=== PATIENT | female | born 1970 | race Caucasian/White ===

== ENCOUNTER 2017-01-06 15:59 | Emergency (ER) | payer OTHER ==
[2017-01-06 16:32] VITALS: BP 99/70; PULSE 85; TEMP 98.2; BMI 21.9
[2017-01-06 17:39] LABS: URINE APPEARANCE SLCLOUDY; URINE BILIRUBIN NEGATIVE (NEGATIVE); URINE BLOOD NEGATIVE (NEGATIVE); URINE COLOR YELLOW; URINE GLUCOSE (UA) NEGATIVE (NEGATIVE); URINE KETONE NEGATIVE (NEGATIVE); URINE NITRITE NEGATIVE (NEGATIVE); URINE PROTEIN NEGATIVE (NEGATIVE); URINE UROBILINOGEN NEGATIVE mg/dL (0.2-1.0)
--- NOTE | 2017-01-06 17:48 | PDOC ---
History of Present Illness - General Chief Complaint: Pain, Acute Stated Complaint: PAIN Time Seen by Provider: 01/06/17 16:55 - History of Present Illness Initial Comments: 01/06/17 17:48 CHIEF COMPLAINT: HISTORY OF PRESENT ILLNESS: 46 yo F with hx of MS, asthma, ovarian cysts, and depression presents to [facility] with pelvic pain and back pain x 4 days. Patient reports feeling worsening pain when she urinates and that she "has to go a lot but nothing happens." Patient also complains of pain going down her legs b/l. Patient denies fever, chills, nausea, vomiting or diarrhea. LMP was last week. Patient reports that she is sexually active but monogamous with . No recent travel or sick contacts. PAST MEDICAL HISTORY: as per HPI FAMILY HISTORY: Denies SOCIAL HISTORY: Denies tobacco, alcohol, illicit drug use. SURGICAL HISTORY: Denies ALLERGIES: No known drug allergies REVIEW OF SYSTEMS General/Constitutional: Denies fever or chills. Denies weakness, weight change. HEENT: Denies change in vision. Denies ear pain or discharge. Denies sore throat. Cardiovascular: Denies chest pain or shortness of breath. Respiratory: Denies cough, wheezing, or hemoptysis. Gastrointestinal: Lower abdominal/pelvic pain b/l. Denies nausea, vomiting, diarrhea or constipation. Denies rectal bleeding. Genitourinary: Dysuria, urinary frequency.. Musculoskeletal: b/l lower back pain. Denies joint or muscle swelling or pain. Skin and breasts: Denies rash or easy bruising. PHYSICAL EXAM General Appearance: Well-appearing, appropriately dressed. No apparent distress. HEENT: EOMI, PERRLA, normal ENT inspection, normal voice, TMs normal, pharynx normal. No conjunctival pallor. No photophobia, scleral icterus. Respiratory/Chest: Lungs CTAB. Cardiovascular: RRR. S1, S2. Gastrointestinal/Abdominal: Normal bowel sounds. Abdomen soft, non-distended. No tenderness or rebound tenderness. No organomegaly, pulsatile mass, guarding , hernia, hepatomegaly, splenomegaly. Musculoskeletal/Extremities: CVA tenderness b/l. Normal inspection. FROM of all extremities, normal capillary refill. Pelvis Stable. No CVA tenderness. No tenderness to extremities, pedal edema, swelling, erythema or deformity. Pelvic: External genitalia normal without lesions. Vaginal vault with thick yellow/green discharge. Cervix is long and closed. No cervical motion tenderness. Uterus is nontender and normal in size. Adnexal tenderness b/l. Integumentary: Appropriate color, dry, warm. No cyanosis, erythema, jaundice or rash Neurologic: scraper operator II-XII intact. Fully oriented, alert. Appropriate mood/affect. Motor strength 5/5. No appreciable EOM palsy, facial droop or sensory deficit. 01/06/17 18:08 Past History - Past Medical History Allergies/Adverse Reactions: Allergies Allergy/AdvReac Type Severity Reaction Status Date / Time No Known Drug Allergies Allergy Verified 01/06/17 16:20 Home Medications: Ambulatory Orders Albuterol Sulfate [Proventil Hfa] 2 inh PO PRN PRN 11/22/12 Budesonide/Formeterol Fumarate [SYMBICORT 160/4.5mcg] 2 inh IH DAILY 11/22/12 Interferon Beta-1A/Albumin [Rebif 22 Mcg/0.5 ml Syringe] 22 mcg SQ UTDICT Lamotrigine [Lamictal] 25 mg PO HS 11/22/12 Trazodone HCl 300 mg PO HS 11/22/12 Bisacodyl [Correctol] 5 mg PO BID 04/20/14 Azithromycin [Zithromax 250mg Tablets -] 250 mg PO UTDICT #6 tab 05/31/15 Benzonatate [Tessalon Perle -] 200 mg PO BID PRN #10 cap 05/31/15 Prednisone [Deltasone -] 20 mg PO DAILY #5 tablet 05/31/15 Nitrofurantoin Monohyd/M-Cryst [Macrobid -] 100 mg PO BID #14 capsule 01/06/17 Anemia: No Asthma: Yes Cancer: No Cardiac Disorders: No CVA: No COPD: No CHF: No Dementia: No Diabetes: No GI Disorders: Yes (CHRONIC CONSTIPATION) Disorders: No HTN: No Hypercholesterolemia: No Liver Disease: No Seizures: No Thyroid Disease: No Other medical history: MS - Immunization History Immunization Up to Date: Yes - Psycho/Social/Smoking Cessation Hx Anxiety: Yes Suicidal Ideation: No Smoking Status: Yes (QUIT 1998) Smoking History: Never smoked Have you smoked in the past 12 months: No If you are a former smoker, when did you quit?: 2007 Information on smoking cessation initiated: No Hx Alcohol Use: No Drug/Substance Use Hx: No Substance Use Type: Alcohol Hx Substance Use Treatment: No *Physical Exam - Vital Signs Last Vital Signs Temp Pulse Resp BP Pulse Ox 98.2 F 85 20 99/70 100 01/06/17 16:21 01/06/17 16:21 01/06/17 16:21 01/06/17 16:21 01/06/17 16:21 Medical Decision Making - Medical Decision Making 01/06/17 18:17 46 yo F with hx of MS, asthma, and depression presents to [facility] with pelvic pain and back pain x 4 days. -UA, Ucx, urine preg UA with 65 WBC and 3+ leuks. WIll treat for UTI. Very low suspicion for ct/gc or PID but given b/l adnexal tenderness will send test to r/o. -CT/GC amplification -Macrobid rx sent to pharm Advised patient to take medication as prescribed and to call us in 2-[address]/gc results. Advised patient of signs and symptoms for return to ER; patient verbalized understanding and agrees to plan. *DC/Admit/Observation/Transfer Diagnosis at time of Disposition: UTI (urinary tract infection) Qualifiers: Urinary tract infection type: site unspecified Hematuria presence: without hematuria Qualified Code(s): N39.0 - Urinary tract infection, site not specified - Discharge Dispostion Disposition: HOME Condition at time of disposition: Stable Admit: No - Prescriptions Prescriptions: Nitrofurantoin Monohyd/M-Cryst [Macrobid -] 100 mg PO BID #14 capsule - Referrals Referrals: Trinh العلي [Primary Care Provider] - - Patient Instructions Printed Discharge Instructions: DI for Urinary Tract Infection (UTI) Additional Instructions: Please take medication as prescribed and complete the ENTIRE course of antibiotics, even after you are feeling better. Follow up with Dr. Henry as planned for your CLERICAL ASSISTANT exam next month. Please call us in 2-3 days for your final test results. If you experience fever, chills, nausea, vomiting, diarrhea , sudden severe pelvis pain, please return to the ER.
[2017-01-06 17:51] LABS: URINE LEUK ESTERASE 3+ (NEGATIVE)
[2017-01-06 17:52] LABS: URINE BACTERIA RARE /hpf (NONE SEEN); URINE MUCUS RARE; URINE RBC 2 /hpf (0-3); URINE WBC 65 /hpf (3-5)
== END 2017-01-06 18:42 | disposition home or self-care (01) ==
LOC: JER 15:59
DX: N39.0 Urinary tract infection, site not specified (principal); Z87.891 Personal history of nicotine dependence; K59.00 Constipation, unspecified; G35 Multiple sclerosis; F32.9 Major depressive disorder, single episode, unspecified
CPT/HCPCS: 36415; 81003; 81015; 84703; 87086; 87491; 87591; 99281-25

== ENCOUNTER 2018-01-20 22:22 | Emergency (ER) | payer OTHER ==
[2018-01-20 22:33] VITALS: BP 106/68; PULSE 89; TEMP 98.9; BMI 21.9
--- NOTE | 2018-01-20 23:26 | PDOC ---
Attending Attestation - Resident Resident Name: Hector Reardon - ED Attending Attestation I have performed the following: I have examined & evaluated the patient, The case was reviewed & discussed with the resident, I agree w/resident's findings & plan, Exceptions are as noted - Medical Decision Making 01/20/18 23:26 I, Dr. Maryan Montenegro, DO, attest that this document has been prepared under my direction and personally reviewed by me in its entirety. I further attest, that it accurately reflects all work, treatment, procedures and medical decision -making performed by me. 01/21/18 00:44 a/p: 47yo female with suprapubic pain, pelvic pain, vag bleeding -no cmt on pelvic exam, adnexal ttp -will send labs, ua, tvus -pain control -ivf hydration -will monitor and reassess 01/21/18 00:48 pt with UTI on labs will start abx <Maryan Montenegro - Last Filed: 01/21/18 00:44> - HPI HPI: 01/21/18 00:54 The patient is a 47 year old female with past medical history of asthma, MS, and ovarian cyst presents to the emergency department with abdominal pain. The patient reports 1 week of progressively worsening, intermittent pain to the abdominal region and B/l flank region that radiates down the legs. The patient reports additions symptoms of vaginal bleeding, initially presented as vaginal discharge. The patient states past 3 days shes been having bright red vaginal bleeding. LMP: 3 weeks ago. Allergies: NKA Surgical history: 2 in the past. TAPPING MACHINE OPERATOR: Dr. Fernández - Physicial Exam PE: 01/21/18 00:59 GENERAL: Awake, alert, and fully oriented, in no acute distress HEAD: No signs of trauma EYES: PERRLA, EOMI, sclera anicteric, conjunctiva clear ENT: Auricles normal inspection, hearing grossly normal, nares patent. Moist mucosa NECK: Normal ROM, supple, no lymphadenopathy, JVD, or masses LUNGS: Breath sounds equal, clear to auscultation bilaterally. No wheezes, and no crackles HEART: Regular rate and rhythm, normal S1 and S2, no murmurs, rubs or gallops ABDOMEN:(+) Suprapubic and pelvic tenderness without rebound or guarding. Rest of the abdomen: nontender, soft. No guarding, no rebound. No masses PELVIC EXAMINATION: Mild blood in the vault. L. adnexal tenderness. No CMT. Os closed. EXTREMITIES: Normal range of motion, no edema. No erythema or tenderness. DP/PT pulses 2+ and symmetric. Warm and well perfused. NEUROLOGICAL: Moves all extremities. Normal speech, normal gait SKIN: Warm, Dry, normal turgor, no rashes or lesions noted. - Medical Decision Making 01/21/18 00:54 Documentation prepared by Pearl Parks, acting as medical staff manager for Maryan Montenegro DO. <Pearl Parks - Last Filed: 01/21/18 01:00>
--- NOTE | 2018-01-20 23:47 | PDOC ---
History of Present Illness - General Chief Complaint: Pain Stated Complaint: ABD CRAMPING,LEG AND BACK PAIN Time Seen by Provider: 01/20/18 23:04 - History of Present Illness Initial Comments: 01/20/18 23:42 47 yo F with h/o MS, asthma, and ovarian cysts who p/w vaginal bleeding and abdominal pain. Patient reports 1 week of worsening, severe, cramping, intermittent, lower abdominal pain and cramping radiates down back down entire left leg. No identifiable alleviators, or head butler. Reports initial clear, yellow, vaginal discharge, which progressed into bright red bleeding x 3 days. LMP 3 weeks ago. Two panty liners per day. No pruritus, or pelvic pain. Pain not improved with Aleve. + lightheadedness, and nausea. Menstruation typically regular. Patient denies vomiting F/C, CP, SOB, urinary complaints, hematuria, pelvic pain , diarrhea, bowel symptoms, constipation, weakness, sensory changes. PMHx: as noted above Surgical: H/o x 2. Tubal ligation. ROS: as noted SHx: Denies Etoh, IVDA, tobacco. Sexually active with . Denies h/o STI' s. Allergies: NKDA Container Packer Operator: Emiliano Past History - Past Medical History Allergies/Adverse Reactions: Allergies Allergy/AdvReac Type Severity Reaction Status Date / Time No Known Drug Allergies Allergy Verified 01/20/18 22:25 Home Medications: Ambulatory Orders Albuterol Sulfate [Proventil Hfa] 2 inh PO PRN PRN 11/22/12 Budesonide/Formeterol Fumarate [SYMBICORT 160/4.5mcg] 2 inh IH DAILY 11/22/12 Interferon Beta-1A/Albumin [Rebif 22 Mcg/0.5 ml Syringe] 22 mcg SQ UTDICT Lamotrigine [Lamictal] 25 mg PO HS 11/22/12 Trazodone HCl 300 mg PO HS 11/22/12 Bisacodyl [Correctol] 5 mg PO BID 04/20/14 Azithromycin [Zithromax 250mg Tablets -] 250 mg PO UTDICT #6 tab 05/31/15 Benzonatate [Tessalon Perle -] 200 mg PO BID PRN #10 cap 05/31/15 predniSONE [Deltasone -] 20 mg PO DAILY #5 tablet 05/31/15 Nitrofurantoin Monohyd/M-Cryst [Macrobid -] 100 mg PO BID #14 capsule 01/06/17 Prednisone [Deltasone] 40 mg PO DAILY 5 Days #10 tablet MDD 2 tab 11/28/17 Cephalexin [Keflex] 500 mg PO BID 7 Days #14 capsule MDD 2 tab 01/21/18 Anemia: No Asthma: Yes Cancer: No Cardiac Disorders: No CVA: No COPD: No CHF: No Dementia: No Diabetes: No GI Disorders: Yes (CHRONIC CONSTIPATION) Disorders: No HTN: No Hypercholesterolemia: No Liver Disease: No Seizures: No Thyroid Disease: No Other medical history: MS - Immunization History Immunization Up to Date: Yes - Suicide/Smoking/Psychosocial Hx Smoking Status: Yes (QUIT 1998) Smoking History: Former smoker Have you smoked in the past 12 months: Yes Number of Cigarettes Smoked Daily: 3 If you are a former smoker, when did you quit?: 2011 Information on smoking cessation initiated: No 'Breaking Loose' booklet given: 11/28/17 Hx Alcohol Use: Yes Drug/Substance Use Hx: No Substance Use Type: Alcohol Hx Substance Use Treatment: No Review of Systems - Review of Systems Comments:: 01/20/18 23:48 GENERAL/CONSTITUTIONAL: No fever or chills. No weakness. HEAD, EYES, EARS, NOSE AND THROAT: No change in vision. No ear pain or discharge. No sore throat. CARDIOVASCULAR: No chest pain or shortness of breath RESPIRATORY: No cough, wheezing, or hemoptysis. GASTROINTESTINAL: + Abdominal pain and nause. No vomiting, diarrhea or constipation. GENITOURINARY: + Vaginal bleeding. No dysuria, frequency, or change in urination. MUSCULOSKELETAL: No joint or muscle swelling or pain. No neck or back pain. SKIN: No rash NEUROLOGIC: No headache, vertigo, loss of consciousness, or change in strength/ sensation. ENDOCRINE: No increased thirst. No abnormal weight change HEMATOLOGIC/LYMPHATIC: No anemia, easy bleeding, or history of blood clots. ALLERGIC/IMMUNOLOGIC: No hives or skin allergy. *Physical Exam - Vital Signs Last Vital Signs Temp Pulse Resp BP Pulse Ox 98.9 F 89 18 106/68 100 01/20/18 22:26 01/20/18 22:26 01/20/18 22:26 01/20/18 22:26 01/20/18 22:26 - Physical Exam Comments: 01/20/18 23:47 GENERAL: Awake, alert, and fully oriented, in no acute distress HEAD: No signs of trauma, normocephalic, atraumatic EYES: PERRLA, EOMI, sclera anicteric, conjunctiva clear ENT: Hearing grossly normal, nares patent, oropharynx clear without exudates. Moist mucosa NECK: Normal ROM, supple, no lymphadenopathy, JVD, or masses LUNGS: No distress, speaks full sentences, clear to auscultation bilaterally HEART: Regular rate and rhythm, normal S1 and S2, no murmurs, rubs or gallops, peripheral pulses normal and equal bilaterally. ABDOMEN:+ epigastric ttp, and lower abdominal ttp. Soft, NBS. No guarding, no rebound. No masses. + BL flank ttp. Neg CVA ttp. : Normal appearing external genitalia. + Blood posterior vaginal vault. Cervical OS closed. Absent CMT on BM. EXTREMITIES : Normal inspection, Normal range of motion, no edema. No clubbing or cyanosis. SKIN: Warm, Dry, normal turgor, no rashes or lesions noted ED Treatment Course - LABORATORY CBC & Chemistry Diagram: 01/21/18 00:14 01/21/18 00:14 Medical Decision Making - Medical Decision Making 01/20/18 23:50 47 yo F with h/o MS, asthma, and ovarian cysts who p/w vaginal bleeding x 3 days and lower abdominal pain x 1 week. VSS, AF. R/o ovarian torsion. Possible DUB will consider leiomyomata, ovarian cystic rupture. Will assess for and related causes of abdominal pain and vaginal bleeding ( ie ectopic, implantation bleeding). ED Course: CBC, CMP, PT/INR, BHCG 01/21/18 00:37 UA: 3+ BLood, 3+ Leuk, 256 WBC, 1320 RBC 01/21/18 00:40 Rocephin 1 GM, Toradol 30 Keflex sent to pharmacy. 01/21/18 01:39 CBC,CMP: Unremarkable 01/21/18 02:14 TVUS: Unremarkable Pt. stable for d/c with return precautions. Advised to f/u with PMD or supervisor briar shop. *DC/Admit/Observation/Transfer Diagnosis at time of Disposition: UTI (urinary tract infection) Qualifiers: Urinary tract infection type: site unspecified Hematuria presence: without hematuria Qualified Code(s): N39.0 - Urinary tract infection, site not specified - Discharge Dispostion Condition at time of disposition: Stable Decision to Admit order: No - Prescriptions Prescriptions: Cephalexin [Keflex] 500 mg PO BID 7 Days #14 capsule MDD 2 tab - Referrals Referrals: Trinh العلي [Primary Care Provider] - - Patient Instructions Printed Discharge Instructions: DI for Urinary Tract Infection (UTI), DI for Abnormal Uterine Bleeding Additional Instructions: Please return to the emergency department with any new or worsening symptoms or concerns. Please follow up with your primary care physician within 72 hours. Please follow up with Container Packer Operator physician within one week. Please take Keflex two times a day for 7 days. - Post Discharge Activity - Attestations Physician Attestion: 01/21/18 00:42 I attest to the information provided in this note.
[2018-01-20] MEDS ORDERED: SODIUM CHLORIDE 1,000 ML IV STA (23:52)
[2018-01-20] MEDS ORDERED: ACETAMINOPHEN 1000 MG/100 ML VIAL (NON FORMULARY) IVPB ONE (23:52)
[2018-01-20] MEDS ORDERED: ACETAMINOPHEN INJECTION 100 ML IVPB ONE (23:56)
[2018-01-21 00:25] LABS: BASO % 0.4 % (0-2.0); EOS % 5.2 % (0-4.5); HEMATOCRIT 35.2 % (32.4-45.2); HEMOGLOBIN 11.9 GM/dL (10.7-15.3); LYMPH % 17.1 % (8-40); MCH 29.3 pg (25.7-33.7); MCHC 33.7 g/dl (32.0-36.0); MEAN PLT VOLUME 7.8 fl (7.5-11.1); MONO % 5.3 % (3.8-10.2); PLATELET COUNT 276 K/MM3 (134-434); RBC 4.04 M/mm3 (3.60-5.2); RDW 14.2 % (11.6-15.6)
[2018-01-21 00:27] LABS: URINE APPEARANCE CLOUDY; URINE BILIRUBIN NEGATIVE (<2.0 mg/dL); URINE COLOR AMBER; URINE GLUCOSE (UA) NEGATIVE (NEGATIVE); URINE KETONE NEGATIVE (NEGATIVE); URINE NITRITE NEGATIVE (NEGATIVE); URINE UROBILINOGEN NEGATIVE mg/dL (0.2-1.0)
[2018-01-21 00:28] LABS: URINE LEUK ESTERASE 3+ (NEGATIVE); URINE PROTEIN 1+ (NEGATIVE)
[2018-01-21 00:30] LABS: EPI CELLS MODERATE /HPF (FEW); URINE BACTERIA FEW /hpf (NONE SEEN); URINE MUCUS MANY
[2018-01-21] MEDS ORDERED: KETOROLAC TROMETHAMINE 30 MG/1 ML VIAL IVPUSH ONE (00:37)
[2018-01-21] MEDS ORDERED: CEFTRIAXONE 1 GM in DEXTROSE 5%-WATER - 100 ML IVPB ONE (00:39)
[2018-01-21 00:42] LABS: INR 0.99 (0.83-1.09); PROTHROMBIN TIME (PATIENT) 11.2 SEC (9.7-13.0)
[2018-01-21 00:47] LABS: ALBUMIN 3.6 g/dl (3.4-5.0); ALK PHOS 71 U/L (45-117); ANION GAP 6 MMOL/L (8-16); BILIRUBIN,TOTAL 0.2 mg/dL (0.2-1.0); BLOOD UREA NITROGEN 19 mg/dL (7-18); CALCIUM 8.1 mg/dL (8.5-10.1); CHLORIDE 104 mmol/L (98-107); CO2 29 mmol/L (21-32); CREATININE 0.6 mg/dL (0.55-1.02); GLUCOSE,RANDOM 103 mg/dL (74-106); POTASSIUM 3.2 mmol/L (3.5-5.1); SGOT/AST 18 U/L (15-37); SGPT/ALT 23 U/L (12-78); SODIUM 139 mmol/L (136-145); TOT PROT 7.1 g/dl (6.4-8.2)
[2018-01-21] MEDS ORDERED: KETOROLAC TROMETHAMINE 30 MG/1 ML VIAL ONE (01:21)
[2018-01-21] MEDS ORDERED: CEFTRIAXONE 1 GM/50 ML BAG ONE (01:22)
== END 2018-01-21 02:25 | disposition home or self-care (01) ==
LOC: JER 22:22
PROC: 3E0337Z Introduction of Electrolytic and Water Balance Substance into Peripheral Vein, Percutaneous Approach (ICD-10-PCS; principal; 2018-01-20)
PROC: 3E03329 Introduction of Other Anti-infective into Peripheral Vein, Percutaneous Approach (ICD-10-PCS; 2018-01-20)
PROC: 3E033NZ Introduction of Analgesics, Hypnotics, Sedatives into Peripheral Vein, Percutaneous Approach (ICD-10-PCS; 2018-01-20)
PROC: 3E0333Z Introduction of Anti-inflammatory into Peripheral Vein, Percutaneous Approach (ICD-10-PCS; 2018-01-20)
DX: N39.0 Urinary tract infection, site not specified (principal); N83.299 Other ovarian cyst, unspecified side; G35 Multiple sclerosis; Z87.09 Personal history of other diseases of the respiratory system
CPT/HCPCS: 36415; 76830-TC; 80053; 81003; 81015; 84702; 85025; 85610; 86850; 86900; 86901; 96361; 96365; 96375; 99282-25; J0131; J7030

== ENCOUNTER 2018-01-27 16:48 | Emergency (ER) | payer OTHER ==
--- NOTE | 2018-01-27 17:00 | PDOC ---
Rapid Medical Evaluation Time Seen by Provider: 01/27/18 17:00 Medical Evaluation: Allergies Allergy/AdvReac Type Severity Reaction Status Date / Time No Known Drug Allergies Allergy Verified 01/20/18 22:25 01/27/18 17:00 I have performed a brief in-person evaluation of this patient. The patient presents with a chief complaint of:worsening vaginal bleeding x 9 days (normal menses last for 3 days). Seen in ED 1 week ago for same w/ normal labs and US. States her CONTACT CENTER CONSULTANT told her to come back to ED today as bleeding has worsened, now with dizziness/weakness. Has pmd appt tmrw Pertinent physical exam findings:stable I have ordered the following:labs The patient will proceed to the ED for further evaluation.
[2018-01-27 17:11] VITALS: BP 105/74; PULSE 87; TEMP 98.1; BMI 21.6
[2018-01-27 18:13] LABS: BASO % 0.4 % (0-2.0); EOS % 5.4 % (0-4.5); HEMATOCRIT 33.6 % (32.4-45.2); HEMOGLOBIN 11.4 GM/dL (10.7-15.3); LYMPH % 30.6 % (8-40); MCH 29.4 pg (25.7-33.7); MCHC 33.8 g/dl (32.0-36.0); MEAN CELL VOLUME 86.9 fl (80-96); MEAN PLT VOLUME 7.6 fl (7.5-11.1); MONO % 7.5 % (3.8-10.2); NEUT % 56.1 % (42.8-82.8); PLATELET COUNT 327 K/MM3 (134-434); RBC 3.87 M/mm3 (3.60-5.2); RDW 14.3 % (11.6-15.6); WHITE BLOOD COUNT 5.2 K/mm3 (4.0-10.0)
--- NOTE | 2018-01-27 18:14 | PDOC ---
History of Present Illness <Alfonso Elias - Last Filed: 01/27/18 19:45> - General History Source: Patient Exam Limitations: No Limitations - History of Present Illness Initial Comments: 01/27/18 22:35 "The patient is a 47-year-old female with a past medical history significant for MS and asthma presents to the emergency department with vaginal bleeding. The patient reports shes been having vaginal bleeding for over a week now, with an increase in bleeding the past 4 days. The patient reports bleeding through her panty liners. The patient reports following up at the ED on 2017 for vaginal bleeding and lower abdominal pain. The patient was given Toradol for the pain, with reported relief. The patient was also treated for UTI with Keflex. The patient denies the symptoms being similar to prior UTI diagnosis. The patient states since the ED visit, the pain and bleeding had worsened with difficulty sleeping through the night, accompanied with dizziness and generalized weakness. The patient was scheduled to see Dr. Fernández earlier today, but secondary to the heavy bleeding patient was sent to the ER. The patient reports she had an appointment with her PCP tomorrow. Denies chest pain , shortness of breath, dysuria, frequency or urgency in urination. LMP: Last month, unable to recall the date. Menstruation typically regular, last 3 days. Allergies: Social history: The patient is sexually active with her . Denies past or present use of tobacco, Etoh or recreational drugs. Surgical history: x2 and Tubal Ligation. PCP: Dr. العلي. 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 Fernández " <Pearl Parks - Last Filed: 01/27/18 22:37> - General Chief Complaint: Vaginal Bleeding Stated Complaint: VAGINAL BLEEDING Time Seen by Provider: 01/27/18 17:00 Past History - Past Medical History Anemia: No Asthma: Yes Cancer: No Cardiac Disorders: No CVA: No COPD: No CHF: No Dementia: No Diabetes: No GI Disorders: Yes (CHRONIC CONSTIPATION) Disorders: No HTN: No Hypercholesterolemia: No Liver Disease: No Seizures: No Thyroid Disease: No - Immunization History Immunization Up to Date: Yes - Suicide/Smoking/Psychosocial Hx Smoking Status: Yes (QUIT 1998) Smoking History: Never smoked Have you smoked in the past 12 months: Yes Number of Cigarettes Smoked Daily: 3 If you are a former smoker, when did you quit?: 2011 'Breaking Loose' booklet given: 11/28/17 Hx Alcohol Use: Yes Drug/Substance Use Hx: No Substance Use Type: Alcohol Hx Substance Use Treatment: No <Alfonso Elias - Last Filed: 01/27/18 19:45> <Pearl Parks - Last Filed: 01/27/18 22:37> - Past Medical History Allergies/Adverse Reactions: Allergies Allergy/AdvReac Type Severity Reaction Status Date / Time No Known Drug Allergies Allergy Verified 01/27/18 17:03 Home Medications: Ambulatory Orders Albuterol Sulfate [Proventil Hfa] 2 inh PO PRN PRN 11/22/12 Budesonide/Formeterol Fumarate [SYMBICORT 160/4.5mcg] 2 inh IH DAILY 11/22/12 Interferon Beta-1A/Albumin [Rebif 22 Mcg/0.5 ml Syringe] 22 mcg SQ UTDICT Lamotrigine [Lamictal] 25 mg PO HS 11/22/12 Trazodone HCl 300 mg PO HS 11/22/12 Bisacodyl [Correctol] 5 mg PO BID 04/20/14 Azithromycin [Zithromax 250mg Tablets -] 250 mg PO UTDICT #6 tab 05/31/15 Benzonatate [Tessalon Perle -] 200 mg PO BID PRN #10 cap 05/31/15 predniSONE [Deltasone -] 20 mg PO DAILY #5 tablet 05/31/15 Nitrofurantoin Monohyd/M-Cryst [Macrobid -] 100 mg PO BID #14 capsule 01/06/17 Prednisone [Deltasone] 40 mg PO DAILY 5 Days #10 tablet MDD 2 tab 11/28/17 Cephalexin [Keflex] 500 mg PO BID 7 Days #14 capsule MDD 2 tab 01/21/18 Review of Systems - Review of Systems Able to Perform ROS?: Yes Comments:: 01/27/18 22:35 "CONSTITUTIONAL: (+) weakness. No reported: Fever, Diaphoresis, chills, Malaise, Loss of Appetite HEENT: No reported: Rhinorrhea, Nasal Congestion, Throat Pain, Throat Swelling, Difficulty Swallowing, Mouth Swelling, Ear Pain, Eye Pain, Visual Changes CARDIOVASCULAR: No reported: Chest Pain, Syncope, Palpitations, Irregular Heart Rate, Lightheadedness, Peripheral Edema RESPIRATORY: No reported: Cough, Shortness of Breath, SOB with Exertion, Orthopnea, Wheezing , Stridor, Hemoptysis GASTROINTESTINAL: (+) Lower abdominal pain, crampy in character. No reported: Upper abdominal pain, Abdominal Distension, Nausea, Vomiting, Diarrhea, Constipation, Melena, Hematochezia GENITOURINARY: (+) Vaginal bleeding. No reported: Dysuria, Frequency, Urgency, Hesitancy, Flank Pain, Genital Pain MUSCULOSKELETAL: No reported: Myalgia, Arthralgia, Joint Swelling, Neck Pain SKIN: No reported: Rash, Itching, Pallor HEMEATOLOGIC/IMMUNOLOGIC: No reported: Easy Bleeding, Easy Bruising, Lymphadenopathy, Frequent infections ENDOCRINE: No reported: Unexplained Weight Gain, Unexplained Weight Loss, Heat Intolerance , Cold Intolerance NEUROLOGIC: (+) Dizziness. No reported: Headache, Focal Weakness, Paresthesias, Vertigo, Lightheadedness, Unsteady Gait, Seizure, Mental Status Changes, Incontinence PSYCHIATRIC: No reported: Anxiety, Depression " <Pearl Parks - Last Filed: 01/27/18 22:37> *Physical Exam - Vital Signs Last Vital Signs Temp Pulse Resp BP Pulse Ox 98.1 F 87 20 105/74 99 01/27/18 17:03 01/27/18 17:03 01/27/18 17:03 01/27/18 17:03 01/27/18 17:03 <Alfonso Elias - Last Filed: 01/27/18 19:45> - Vital Signs Last Vital Signs Temp Pulse Resp BP Pulse Ox 98.1 F 87 20 105/74 99 01/27/18 17:03 01/27/18 17:03 01/27/18 17:03 01/27/18 17:03 01/27/18 17:03 - Physical Exam Comments: 01/27/18 22:36 "GENERAL: The patient is awake, alert, and fully oriented, Nontoxic - in no acute distress. HEAD: Normocephalic, atraumatic. EYES: extraocular movements intact, sclera anicteric, conjunctiva clear. ENT: Normal voice, Moist mucous membranes. NECK: Normal range of motion, supple LUNGS: Breath sounds equal, clear to auscultation bilaterally. No wheezes, no rhonchi, no rales. HEART: Regular rate and rhythm, without murmur, rub or gallop. ABDOMEN: Soft, nontender, No guarding, no rebound.No CVA tenderness : (+) Scant dark red blood in the vault. No CMT or lesion. Closed Os. EXTREMITIES: Normal range of motion, no edema. NEUROLOGICAL: No facial asymmetry, Normal speech, PSYCH: Normal mood, normal affect. SKIN: Warm, Dry, normal turgor, " <Pearl Parks - Last Filed: 01/27/18 22:37> ED Treatment Course - LABORATORY CBC & Chemistry Diagram: 01/27/18 18:00 01/27/18 18:00 <Alfonso Elias - Last Filed: 01/27/18 19:45> - LABORATORY CBC & Chemistry Diagram: 01/27/18 18:00 01/27/18 18:00 - ADDITIONAL ORDERS Additional order review: Laboratory Results 01/27/18 01/27/18 01/27/18 18:00 18:00 18:00 PT with INR 11.60 INR 1.03 Sodium 140 Potassium 3.7 Chloride 105 Carbon Dioxide 26 Anion Gap 9 BUN 20 H Creatinine 0.5 L Creat Clearance w eGFR > 60 Random Glucose 113 H Calcium 8.3 L Total Bilirubin 0.2 AST 19 ALT 27 Alkaline Phosphatase 67 Total Protein 7.4 Albumin 3.9 Blood Type O POSITIVE Antibody Screen Negative 01/27/18 18:00 RBC 3.87 MCV 86.9 MCHC 33.8 RDW 14.3 MPV 7.6 Neutrophils % 56.1 D Lymphocytes % 30.6 D Monocytes % 7.5 Eosinophils % 5.4 H Basophils % 0.4 <Pearl Parks - Last Filed: 01/27/18 22:37> Medical Decision Making - Medical Decision Making 01/27/18 18:13 47y F hx of MS, presents with vaginal bleeding for the past 2 weeks or so - pt notes some intermittent superpubic cramping and increasing vaginal bleedin gfor the past 4 days associated with lightheadedness and generalized weakness. no associated fever/chills. on exam pt wel lappearing in no distress. exam unremakble beside mild amt of dark bloo din vaginal vault blood work noted stable hgb. recommended pelvic US but pt declines stating she just had one and that she has an appointment dr. Carballo on tuesday. vitals wnl dx: cesar pt has apointment with dr العلي tomorrow and dr. shah on tuesday return precautions were discussed I discussed the physical exam findings, ancillary test results and final diagnoses with the patient. I answered all of the patient's questions. The patient was satisfied with the care received and felt comfortable with the discharge plan and treatment plan. The patient will call their primary care physician within 24 hours to arrange follow-up and will return to the Emergency Department with any new, persistent or worsening symptoms. <Alfonso Elias - Last Filed: 01/27/18 19:45> *DC/Admit/Observation/Transfer - Discharge Dispostion Decision to Admit order: No <Alfonso Elias - Last Filed: 01/27/18 19:45> - Attestations Scribe Attestion: 01/27/18 22:37 Documentation prepared by Pearl Parks, acting as medical csr for Alfonso Elias MD. <Pearl Parks - Last Filed: 01/27/18 22:37> Diagnosis at time of Disposition: Menorrhagia Qualifiers: Menorrahagia type: premenopausal Qualified Code(s): N92.4 - Excessive bleeding in the premenopausal period - Discharge Dispostion Disposition: HOME Condition at time of disposition: Improved - Referrals Referrals: Trinh العلي [Primary Care Provider] - Rene An MD [Staff Physician] - - Patient Instructions Printed Discharge Instructions: DI for Menorrhagia Additional Instructions: Return to the emergency department immediately with ANY new, persistent or worsening symptoms including worsening bleeding, lightheadedness, shortness of breath or any other concerns You MUST call and follow up with Dr. Moore on tuesday for further evaluation of your symptoms. Results were discussed with you. Please make sure your doctor reviews the results of your emergency evaluation. Print Language: YAKUT - Post Discharge Activity
[2018-01-27] MEDS ORDERED: METOCLOPRAMIDE HCL INJECTION 10 MG/2 ML VIAL IVPUSH ONE (18:15)
[2018-01-27] MEDS ORDERED: ACETAMINOPHEN 325 MG TABLET (FP) PO ONE (18:15)
[2018-01-27 18:33] LABS: INR 1.03 (0.83-1.09); PROTHROMBIN TIME (PATIENT) 11.6 SEC (9.7-13.0)
[2018-01-27 19:10] LABS: ALBUMIN 3.9 g/dl (3.4-5.0); ANION GAP 9 MMOL/L (8-16); BLOOD UREA NITROGEN 20 mg/dL (7-18); CALCIUM 8.3 mg/dL (8.5-10.1); CHLORIDE 105 mmol/L (98-107); CO2 26 mmol/L (21-32); CREATININE 0.5 mg/dL (0.55-1.3); GLUCOSE,RANDOM 113 mg/dL (74-106); POTASSIUM 3.7 mmol/L (3.5-5.1); SGOT/AST 19 U/L (15-37); SGPT/ALT 27 U/L (13-61); SODIUM 140 mmol/L (136-145)
[2018-01-27 19:12] LABS: ALK PHOS 67 U/L (45-117); BILIRUBIN,TOTAL 0.2 mg/dL (0.2-1.0); TOT PROT 7.4 g/dl (6.4-8.2)
== END 2018-01-27 19:52 | disposition home or self-care (01) ==
LOC: JER 16:48
DX: N92.4 Excessive bleeding in the premenopausal period (principal)
CPT/HCPCS: 36415; 80053; 85025; 85610; 86850; 86900; 86901; 99282-25

== ENCOUNTER 2020-01-27 17:00 | Inpatient (IN) | payer OTHER ==
[2020-01-27] MEDS ORDERED: methylPREDNISolone NA SUCC 1000 MG/8 ML VIAL IVPB ONE (18:18)
--- NOTE | 2020-01-27 18:29 | PDOC ---
History of Present Illness - General Chief Complaint: Lightheaded Stated Complaint: SENT BY Time Seen by Provider: 01/27/20 17:41 History Source: Patient Exam Limitations: No Limitations - History of Present Illness Initial Comments: 01/27/20 18:23 49F PMH MS, asthma sent in by Neurologist Dr. Andujar for 2 days of worsening b/l proximal LE and UE weakness with episodes of vertigo and word finding difficulty. Symptoms peaked approximately two hours prior to arrival but patient no long has vertigo or word finding difficulties. Current has b/l leg weakness. Denies sensory changes, numbness, tingling. Denies f/c, recent illness, neck pain, cp/sob, n/v/d, abd pain, dysuria. Did endorse episodic visual blurring for the last few days. NKDA. PCP Trinh العلي, . Past History - Medical History Allergies/Adverse Reactions: Allergies Allergy/AdvReac Type Severity Reaction Status Date / Time No Known Drug Allergies Allergy Verified 01/27/20 17:19 Home Medications: Ambulatory Orders Albuterol Sulfate [Proventil HFA Inhaler -] 2 inh PO PRN PRN 11/22/12 Budesonide/Formeterol Fumarate [SYMBICORT 160/4.5mcg -] 2 inh IH DAILY 11/22/12 Interferon Beta-1A/Albumin [Rebif 22 Mcg/0.5 ml Syringe] 22 mcg SQ UTDICT 11/22/12 Lamotrigine [Lamictal] 25 mg PO HS 11/22/12 Trazodone HCl 300 mg PO HS 11/22/12 Bisacodyl [Correctol] 30 mg PO DAILY 04/20/14 Linaclotide [Linzess] 290 mcg PO DAILY 01/29/20 Pantoprazole Sodium [Protonix] 40 mg PO DAILY #30 tablet. 01/29/20 Simvastatin 40 mg PO DAILY 01/29/20 predniSONE [Deltasone -] 20 mg PO DAILY #30 tablet 01/29/20 Anemia: No Asthma: Yes Cancer: No Cardiac Disorders: No CVA: No COPD: No CHF: No Dementia: No Diabetes: No GI Disorders: Yes (CHRONIC CONSTIPATION) Disorders: No HTN: No Hypercholesterolemia: No Liver Disease: No Seizures: No Thyroid Disease: No Other medical history: MS - Reproductive History Is Patient Now?: No Therapeutic (s) & number: No - Immunization History Immunization Up to Date: Yes - Psycho-Social/Smoking History Smoking Status: Yes (QUIT 1998) Smoking History: Never smoked Have you smoked in the past 12 months: Yes Number of Cigarettes Smoked Daily: 3 If you are a former smoker, when did you quit?: 2011 'Breaking Loose' booklet given: 11/28/17 - Substance Abuse Hx (Audit-C & DAST Scrn) How often the patient has a drink containing alcohol: Never Score: In Men: 4 or > Positive; In Women: 3 or > Positive: 0 Screen Result (Pos requires Nsg. Audit-10AR): Negative Review of Systems - Review of Systems Comments:: 02/02/20 05:19 CONSTITUTIONAL: Denies F / C HEENT: + episodic vertigo, episodic vision blurring, and episodic word finding difficulties. Denies headache, sore throat, rhinorrhea RESP: Denies SOB, cough CARD: Denies chest pain, palpitations GI: Denies N / V / D, abdominal pain : Denies dysuria NEURO: + UE and LE weakness b/l Denies numbness, tingling MSK: Denies neck, back pain SKIN: Denies rashes *Physical Exam - Vital Signs Last Vital Signs Temp Pulse Resp BP Pulse Ox 97.4 F L 103 H 18 131/88 99 01/27/20 17:16 01/27/20 17:16 01/27/20 17:16 01/27/20 17:16 01/27/20 17:16 - Physical Exam 02/02/20 05:19 GEN: NAD, comfortable. AAOx3. HEENT: NC/AT, EOMI, PERRL, CN II-XII grossly intact. No facial asymmetry. Normal voice. Supple neck w/ FROM. CV: S1/S2, RRR, no m/r/g LUNG: CTAB, no wheezes, crackles, rales, rhonchi. GI: Soft, ndnt, +BS, no guarding, no rebound. MSK: No obvious deformities of all extremities. SKIN: Warm, dry, no rashes appreciated. PSYCH: Normal mood and affect. NEURO: 5/5 UE strength b/l. 4/5 proximal LE strenght and 4+/5 distal LE s trength. symmetric sensation. no pronation drift. Able to weight bear and take a few steps but overall unsteady ED Treatment Course - LABORATORY CBC & Chemistry Diagram: 01/29/20 08:00 01/29/20 08:00 - RADIOLOGY Radiology Studies Ordered: Category Date Time Status CHEST X-RAY PORTABLE* [RAD] Stat Radiology 01/27/20 18:18 Ordered Medical Decision Making - Medical Decision Making 02/02/20 05:19 49F w/ MS experiencing b/l proximal LE and UE weakness with associated episodic visual blurring, vertigo, and word finding difficulties. CUrrently experiencing only weakness. On testing UE strenght appropriate but proximal > distal weakness of the b/l LEs. Dw Dr. Andujar who recommends basic labs, solu-medrol, and admission. 01/27/20 19:08 signed out to PM team for further management and admission Discharge - Discharge Information Problems reviewed: Yes Clinical Impression/Diagnosis: Multiple sclerosis exacerbation Condition: Stable Disposition: HOME - Follow up/Referral - Patient Discharge Instructions - Post Discharge Activity
[2020-01-27] MEDS ORDERED: methylPREDNISolone NA SUCC 125 MG/2 ML VIAL ONE (18:36)
--- NOTE | 2020-01-27 18:56 | PDOC ---
Documentation entered by Rachelle Guerrero SCRIBE, acting as scribe for Maria Fernanda Tirado MD. Maria Fernanda Tirado MD: This documentation has been prepared by the [employer], SCRIBE, under my direction and personally reviewed by me in its entirety. I confirm that the documentation accurately reflects all work, treatment, procedures, and medical decision making performed by me. Attending Attestation - Resident Resident Name: CampbellVasu - ED Attending Attestation I have performed the following: I have examined & evaluated the patient, The case was reviewed & discussed with the resident, I agree w/resident's findings & plan, Exceptions are as noted - HPI HPI: 01/27/20 18:37 Patient is a 49 year old female with a significant past medical history of MS, asthma who presents to the ED sent by neurologist Dr. Andujar for two days of progressively worsening bilateral upper and lower extremity weakness with episodes of vertigo and word finding difficulty. Patient endorses symptoms reached their worst approximately two hours prior to her arrival to the ED. Patient still reports bilateral leg weakness but her vertigo and word finding difficulty have since resolved. She reports associated visual changes for the last few days. Denies headache, fever, chills, shortness of breath, chest pain, abdominal pain, nausea, vomiting, diarrhea, or urinary changes. Allergies: NKDA PCP: Dr. العلي - Physicial Exam PE: 01/27/20 18:42 Agree with resident exam. Patient is alert and oriented and in no acute distress. Neuro: CN 2-12 grossly intact. speech fluent and clear. 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 + drift on straight leg extention bilaterally. - Medical Decision Making 01/27/20 18:53 Pt presents to the ED complaining of bilateral arm and leg weakness and intermittent speech difficulty, likely secondary to MS flare. Case discussed with Dr. Andujar, who wants the patient started on solumedrol and admitted to medicine. Will check labs and admit to medicine. Discharge - Discharge Information Problems reviewed: Yes Clinical Impression/Diagnosis: Multiple sclerosis exacerbation Condition: Stable Disposition: HOME - Follow up/Referral - Patient Discharge Instructions - Post Discharge Activity
[2020-01-27 19:00] LABS: BASO % 1.1 % (0-2.0); EOS % 3.4 % (0-4.5); HEMATOCRIT 36.3 % (32.4-45.2); HEMOGLOBIN 12.1 GM/dL (10.7-15.3); LYMPH % 32.2 % (8-40); MCH 30.3 pg (25.7-33.7); MCHC 33.3 g/dl (32.0-36.0); MEAN CELL VOLUME 91.1 fl (80-96); MEAN PLT VOLUME 8.1 fl (7.5-11.1); NEUT % 55.3 % (42.8-82.8); PLATELET COUNT 211 K/MM3 (134-434); RBC 3.99 M/mm3 (3.60-5.2); RDW 13.5 % (11.6-15.6)
--- NOTE | 2020-01-27 19:37 | PDOC ---
*Physical Exam - Vital Signs Last Vital Signs Temp Pulse Resp BP Pulse Ox 97.4 F L 103 H 18 131/88 99 01/27/20 17:16 01/27/20 17:16 01/27/20 17:16 01/27/20 17:16 01/27/20 18:55 ED Treatment Course - LABORATORY CBC & Chemistry Diagram: 01/27/20 18:40 01/27/20 18:40 - ADDITIONAL ORDERS Additional order review: 01/27/20 18:40 RBC 3.99 MCV 91.1 MCHC 33.3 RDW 13.5 MPV 8.1 Neutrophils % 55.3 Lymphocytes % 32.2 Monocytes % 8.0 Eosinophils % 3.4 Basophils % 1.1 - Medications Given in the ED: ED Medications Discontinued Medications Generic Name Dose Route Start Last Admin Trade Name Santanaq PRN Reason Stop Dose Admin Methylprednisolone Sodium Succinate 250 mg 01/27/20 18:18 01/27/20 18:52 Solu-Medrol - IVPB 01/27/20 18:19 250 mg ONCE ONE Administration Medical Decision Making - Medical Decision Making 01/27/20 19:33 Patient received as signout This is a 49y/o f with PMH of MS followed by Dr. Pérez who sent her in due to 2 days of bilateral proximal LE and UE weakness. She was also having vertigo and word finding difficulty which peaked two hours prior to coming to the hospital She is no longer with the vertigo or word finding. Dr. Pérez wanted her admitted for MRI Given 250mg of Solumedrol Pending basic labs - Patient admitted to [facility] Discharge - Discharge Information Problems reviewed: Yes Clinical Impression/Diagnosis: Multiple sclerosis exacerbation Condition: Stable - Admission Yes - Follow up/Referral - Patient Discharge Instructions - Post Discharge Activity
[2020-01-27 20:05] LABS: ALBUMIN 3.4 g/dl (3.4-5.0); BLOOD UREA NITROGEN 17.1 mg/dL (7-18); CALCIUM 8.3 mg/dL (8.5-10.1); POTASSIUM 3.6 mmol/L (3.5-5.1); TOT PROT 6.9 g/dl (6.4-8.2)
[2020-01-27 20:27] LABS: BILIRUBIN,TOTAL 0.2 mg/dL (0.2-1)
--- NOTE | 2020-01-27 20:31 | PN ---
Teaching Attending Note Name of Resident: Luz Caballero ATTENDING PHYSICIAN STATEMENT I saw and evaluated the patient. I reviewed the resident's note and discussed the case with the resident. I agree with the resident's findings and plan as documented. SUBJECTIVE: Patient is a 49 year old woman with a PMH of Gastritis, Constipation, Depression, Multiple sclerosis and Asthma who presents to the ER sent by Neurologist Dr. Andujar for two days of progressively worsening bilateral upper and lower extremity weakness with episodes of vertigo and word finding difficulty. Patient reports symptoms reached their worst approximately two hours prior to her arrival to the ER. Patient still reports bilateral leg weakness but her vertigo and word finding difficulty have since resolved. She reports associated visual changes for the last few days. Denies headache, fever, chills, shortness of breath, chest pain, abdominal pain, nausea, vomiting, diarrhea or urinary changes. Denies alcohol, tobacco or illicit drug use. No sick contacts or recent travels. Family history of HTN and DM in mother; father and brother from [place]. OBJECTIVE: Alert Vital Signs Period Temp Pulse Resp BP Sys/Winston Pulse Ox Last 24 Hr 97.4 F 84-103 16-18 131-131/88-91 98-99 HEENT: No Jaundice, eye redness or discharge, PERRLA, EOMI. Normocephalic, atraumatic. External ears are normal and hearing is grossly intact. No nasal discharge. Neck: Supple, nontender. No palpable adenopathy or thyromegaly. No JVD Chest: Good effort. Clear to auscultation and percussion. Heart: Regular. No S3, rub or murmur Abdomen: Not distended, soft, nontender and no HSM. No rebound or guarding. Normal bowel sounds. Ext: Peripheral pulses intact. No leg edema. Skin: Warm and dry. No petechiae, rash or ecchymosis. Neuro: Alert. Oriented x3. Difficulty finding words. CN 2-12 grossly intact. Sensation grossly intact in all four extremities; weakness in lower extremities. Psych: Appropriate mood and affect. Good insight. Home Medications Medication Instructions Recorded Albuterol Sulfate [Proventil Hfa] 2 inh PO PRN PRN 11/22/12 Budesonide/Formeterol Fumarate 2 inh IH DAILY 11/22/12 [SYMBICORT 160/4.5mcg] Interferon Beta-1A/Albumin [Rebif 22 mcg SQ UTDICT 11/22/12 22 Mcg/0.5 ml Syringe] Lamotrigine [Lamictal] 25 mg PO HS 11/22/12 Trazodone HCl 300 mg PO HS 11/22/12 Bisacodyl [Correctol] 5 mg PO BID 04/20/14 Azithromycin [Zithromax 250mg 250 mg PO UTDICT #6 tab 05/31/15 Tablets -] Benzonatate [Tessalon Perle -] 200 mg PO BID PRN #10 cap 05/31/15 Abnormal Lab Results 01/27/20 18:40 Anion Gap 4 L Calcium 8.3 L AST 9 L Current Medications Generic Name Dose Route Start Last Admin Trade Name Freq PRN Reason Stop Dose Admin Albuterol Sulfate 2 puff 01/27/20 23:26 Ventolin Hfa Inhaler - IH Q4H PRN SHORT OF BREATH/WHEEZING Bisacodyl 5 mg 01/28/20 10:00 Dulcolax - PO DAILY STEVE Bupropion HCl 150 mg 01/28/20 10:00 Wellbutrin Xl - PO DAILY STEVE Enoxaparin Sodium 40 mg 01/28/20 10:00 Lovenox - SQ DAILY STEVE Lamotrigine 25 mg 01/27/20 23:19 Lamictal - PO HS STEVE Methylprednisolone Sodium Succinate 250 mg 01/28/20 10:00 Solu-Medrol - IVPB BID STEVE Montelukast Sodium 5 mg 01/28/20 22:00 Singulair - PO HS STEVE Polyethylene Glycol 17 gm 01/28/20 10:00 Miralax (For Daily Use) - PO DAILY STEVE Trazodone HCl 300 mg 01/28/20 22:00 Desyrel - PO HS STEVE ASSESSMENT AND PLAN: 1. MS Flare up - No acute abnormality on CXR. Urinalysis pending. ER staff prescribed Solumedrol 250 mg IV and Trazodone 250 mg PO for the patient. Will get MRI brain as recommended by her Neurologist and continue Solumedrol 250 mg IV q 12 hours and give Protonix 40 mg PO qd. EKG shows NSR at 86/minute and QTc [address]-T wave changes. Treat constipation with Miralax 17 gm bid and consult GI for possible outpatient colonoscopy to investigate chronic constipation. Viral testing for COVID-19 ordered and patient placed on airborne, droplet and contact isolation. Will continue comprehensive care for all of patients comorbid conditions including Duoneb PRN for Asthma. 2. DVT prophylaxis - Lovenox 40 mg SQ q 24 hours. 3. Advance directives - Full code
[2020-01-27] MEDS ORDERED: traZODone HCL 100 MG TABLET (FP) PO ONE (22:00)
[2020-01-27] MEDS ORDERED: ALBUTEROL SO4 HFA INHALER IH PRN (23:26)
--- NOTE | 2020-01-27 23:31 | HP ---
CHIEF COMPLAINT: I am having weakness PCP: Dr. Trinh العلي neurologist: Dr. Andujar HISTORY OF PRESENT ILLNESS: 49yo F with PMHx of asthma and Multiple Sclerosis with associated gastritis, chronic constipation, depression, and insomnia who presented with worsening weakness in all extremities and expressive aphasia. at bedside, helped with HPI as patient had some difficulties expressing herself. Symptoms of weakness and forgetfulness started about 2-4 days ago. At first, patient experienced some dizziness. Her helped her into bed but when he checked on her later she did not feel any better. Her last MS exacerbation was about 3-4 years ago, which was similar to this exacerbation but less severe and without the aphasia. Last time she got the steroids then felt better, but this time her neurologist recommended she come to the hospital. Patient explained that she has some baseline leg weakness with the L leg weaker than the R, but not all her weakness is worse than baseline. Also endorsed forgetfulness, dizziness, occasional headaches at night, and chronic constipation. Denied SOB, CP, NVD, dysuria, polyuria. ER course was notable for: (1) marked weakness in bilateral lower extremities L>R (2) expressive aphasia Recent Travel: was on the [place] [employer] for 6 days in December 2019 PAST MEDICAL HISTORY: as per HPI PAST SURGICAL HISTORY: 3 C-sections R shoulder ?lipoma removal Family History: mother: HTN, DM, alive father: of [place] brother: of [place], had asthma sister: healthy 3 healthy children OBGyn History: regular MPs due to OCPs - taking due to fibroma LMP last week Social History: Smoking: used to smoked 6-8 cigs/day for ~19 years, stopped about 1 year ago Alcohol: denied Drugs: denied Work: used to work at [employer], went on disability 14 years ago when diagnosed with MS Home: lives with Allergies No Known Drug Allergies Allergy (Verified 01/27/20 17:19) HOME MEDICATIONS: patient and well aware of which meds, but unsure of doses - AM meds: bupropion, bisacodyl, linaclotide - PM meds: trazodone 300, simvastatin, lamotrigene, montelukast Vienva control pills REVIEW OF SYSTEMS as per HPI PHYSICAL EXAMINATION Vital Signs - 24 hr 01/27/20 01/27/20 01/27/20 17:16 18:55 22:07 Temperature 97.4 F L Pulse Rate 103 H Pulse Rate [ 84 Left Radial] Respiratory 18 16 Rate Blood Pressure 131/88 Blood Pressure 131/91 [Left Arm] O2 Sat by Pulse 99 99 98 Oximetry (%) GENERAL: F, appears younger than stated age, thin to average body habitus, AAOx4 showing no signs of acute distress HEAD: Normal with no signs of trauma, good dentition EYES: PERRL, extraocular movements intact bilaterally, sclera white EARS, NOSE, THROAT: Moist mucous membranes. NECK: No lymphadenopathy noted LUNGS: CTAB HEART: RRR, normal S1 and S2 without murmur ABDOMEN: Soft, nontender, not distended, active bowel sounds, post- stretchmarks EXTREMITIES: 2+ radial and dorsalis pedis pulses, warm to touch bilaterally, nontender to palpation, no peripheral edema appreciated, no active lesions or ulcers noted on feet bilaterally including interdigital web spaces, sensation intact bilaterally in all extremities, upper extremities full strength, lower extremities weakness L>R NEUROLOGICAL: Cranial nerves II-XII grossly intact. Normal speech with symmetricalfacial movements. Sensation intact bilaterally. weak and shuffled gait. PSYCHIATRIC: Cooperative, motivated and interactive, responds appropriately in setting of expressive aphasia. Good eye contact. "Let me try" mood and affect congruent with stated mood SKIN: no rashes or lesions noted Laboratory Results - last 24 hr 01/27/20 01/27/20 18:40 18:40 WBC 4.0 RBC 3.99 Hgb 12.1 Hct 36.3 MCV 91.1 MCH 30.3 MCHC 33.3 RDW 13.5 Plt Count 211 D MPV 8.1 Absolute Neuts (auto) 2.2 Neutrophils % 55.3 Lymphocytes % 32.2 Monocytes % 8.0 Eosinophils % 3.4 Basophils % 1.1 Nucleated RBC % 0 Sodium 139 Potassium 3.6 Chloride 104 Carbon Dioxide 31 Anion Gap 4 L BUN 17.1 Creatinine 1.0 Est GFR (CKD-EPI)AfAm 77.69 Est GFR (CKD-EPI)NonAf 67.04 Random Glucose 101 Calcium 8.3 L Total Bilirubin 0.2 AST 9 L ALT 21 Alkaline Phosphatase 60 Total Protein 6.9 Albumin 3.4 ASSESSMENT/PLAN: 49yo F with PMHx of asthma and Multiple Sclerosis with associated gastritis, chronic constipation, depression, and insomnia who presented with worsening weakness in all extremities and expressive aphasia. Home meds were restarted at low doses - needs med rec. [facility] [address], [place] [phone] #Weakness and expressive aphasia likely 2/2 to Multiple Sclerosis exacerbation - solumedrol 250 BID - neurology consulted - MRI (with and without) with gadolinium ordered - continue home lamotrigene #Asthma - continue home montelukast - ordered PRN albuterol IH #Constipation - continue home bisacodyl - patient takes linaclotide at home - not available here - miralax ordered #Depression - continue home bupropion #Insomnia - continue home trazodone 300 #FEN - no standing fluids - replete lytes PRN - regular diet #PPX - DVT: lovenox #Dispo: medSurg Family Medical History Family History: As Documented Visit type - Emergency Visit Emergency Visit: Yes ED Registration Date: 01/27/20 Care time: The patient presented to the Emergency Department on the above date and was hospitalized for further evaluation of their emergent condition. - New Patient This patient is new to me today: Yes Date on this admission: 01/28/20 - Critical Care Critical Care patient: No ATTENDING PHYSICIAN STATEMENT I saw and evaluated the patient. I reviewed the resident's note and discussed the case with the resident. I agree with the resident's findings and plan as documented. SUBJECTIVE: OBJECTIVE: ASSESSMENT AND PLAN:
[2020-01-28] MEDS ORDERED: lamoTRIgine 25 MG TABLET ONE (00:43)
[2020-01-28] MEDS: lamoTRIgine 25 MG TABLET PO SCH ×2 (00:44→22:47)
[2020-01-28] MEDS ORDERED: ACETAMINOPHEN 1000 MG/100 ML VIAL (NON FORMULARY) IVPB ONE ×2 (01:15→22:16)
[2020-01-28 07:11] LABS: BASO % 0.1 % (0-2.0); HEMATOCRIT 37.4 % (32.4-45.2); HEMOGLOBIN 12.3 GM/dL (10.7-15.3); LYMPH % 20.2 % (8-40); MCH 29.6 pg (25.7-33.7); MCHC 32.9 g/dl (32.0-36.0); MEAN CELL VOLUME 90.2 fl (80-96); MEAN PLT VOLUME 8.8 fl (7.5-11.1); MONO % 1.5 % (3.8-10.2); NEUT % 78.2 % (42.8-82.8); PLATELET COUNT 210 K/MM3 (134-434); RBC 4.14 M/mm3 (3.60-5.2); RDW 13.5 % (11.6-15.6)
[2020-01-28 07:41] LABS: ALBUMIN 3.3 g/dl (3.4-5.0); BILIRUBIN,TOTAL 0.5 mg/dL (0.2-1); BLOOD UREA NITROGEN 14.9 mg/dL (7-18); CALCIUM 8.4 mg/dL (8.5-10.1); CREATININE 0.6 mg/dL (0.55-1.3); MAGNESIUM 2.1 mg/dL (1.8-2.4); PHOSPHOROUS 4.5 mg/dL (2.5-4.9); POTASSIUM 4.5 mmol/L (3.5-5.1)
[2020-01-28 08:09] LABS: WHITE BLOOD COUNT 1.8 K/mm3 (4.0-10.0)
[2020-01-28] MEDS ORDERED: methylPREDNISolone NA SUCC 125 MG/2 ML VIAL IVPB SCH (10:00)
--- NOTE | 2020-01-28 10:40 | EKG ---
Test Reason : Blood Pressure : / mmHG Vent. Rate : 086 BPM Atrial Rate : 086 BPM P-R Int : 168 ms QRS Dur : 088 ms QT Int : 394 ms P-R-T Axes : 067 044 052 degrees QTc Int : 471 ms NORMAL SINUS RHYTHM POSSIBLE LEFT ATRIAL ENLARGEMENT BORDERLINE ECG WHEN COMPARED WITH ECG OF 28-NOV-2017 19:47, NO SIGNIFICANT CHANGE WAS FOUND Confirmed by BRIAN COSME MD ([id number]) on 01/28/2020 10:40:09 AM Referred By: Confirmed By:BRIAN COSME MD
[2020-01-28] MEDS: BISACODYL 5 MG TABLET.DR (FP) PO SCH (10:54)
[2020-01-28] MEDS: ENOXAPARIN NA (PORCINE) 40 MG/0.4 ML DISP.SYRIN SQ SCH (10:55)
[2020-01-28] MEDS: POLYETHYLENE GLYCOL 3350 119 GM BTL PO SCH (10:55)
--- NOTE | 2020-01-28 11:51 | CON.NEURO ---
Consult Consult Specialty:: Con Neurology Referred by:: ER - History of Present Illness History of Present Illness: this is a 49-year-old right-handed female patient with multiple medical problems including history of relapsing remitting multiple sclerosis for over the past 20 years patient last MRI was done in fall patient is on immune modulator the called me yesterday that the patient is not feeling good over the past 2 weeks with increasing weakness in the legs. No report of any recent travel patient still under the care of psychiatrist patient denies any difficulty swallowing patient with mostly bilateral leg weaknessand urgency of urination. Patient was independent for questionable multiple sclerosis relapse. - History Source History Provided By: Patient Limitations to Obtaining History: No Limitations - Past Medical History ...LMP: 01/20/20 ...: No - Alcohol/Substance Use Hx Alcohol Use: Yes - Smoking History Smoking history: Never smoked Have you smoked in the past 12 months: Yes Aproximately how many cigarettes per day: 3 If you are a former smoker, when did you quit?: 2011 Home Medications - Allergies Allergies/Adverse Reactions: Allergies Allergy/AdvReac Type Severity Reaction Status Date / Time No Known Drug Allergies Allergy Verified 01/27/20 17:19 - Home Medications Home Medications: Ambulatory Orders Albuterol Sulfate [Proventil Hfa] 2 inh PO PRN PRN 11/22/12 Budesonide/Formeterol Fumarate [SYMBICORT 160/4.5mcg] 2 inh IH DAILY 11/22/12 Interferon Beta-1A/Albumin [Rebif 22 Mcg/0.5 ml Syringe] 22 mcg SQ UTDICT 11/22/12 Lamotrigine [Lamictal] 25 mg PO HS 11/22/12 Trazodone HCl 300 mg PO HS 11/22/12 Bisacodyl [Correctol] 5 mg PO BID 04/20/14 Azithromycin [Zithromax 250mg Tablets -] 250 mg PO UTDICT #6 tab 05/31/15 Benzonatate [Tessalon Perle -] 200 mg PO BID PRN #10 cap 05/31/15 Family Medical History Family History: Unremarkable Review of Systems - Review of Systems Neurological: reports: Dizziness, Headache, Incoordination, Numbness Physical Exam-Neuro Vital Signs: Vital Signs Temperature 98 F 01/28/20 08:56 Pulse Rate 70 01/28/20 06:06 Respiratory Rate 19 09/14/20 06:06 Blood Pressure 116/78 01/28/20 08:56 O2 Sat by Pulse Oximetry (%) 98 01/28/20 08:56 Constitutional: Yes: Well Nourished Neck: Yes: WNL Cardiovascular: Yes: WNL Labs: CBC, BMP 01/28/20 05:21 01/28/20 05:21 - Neuro Exam Level Of Consciousness: Yes: Oriented to Person, Oriented to Place, Oriented to Time Eyes: Yes: PERRLA Speech: WNL Dominant Hand: Right Cranial Nerves II-XII Intact: Yes Gag: Present DTR's: 1+ Left Bicep, 1+ Right Bicep, 1+ Left Tricep, 1+ Right Tricep Response to light touch: Normal Response to pain prick: Normal Response to temperature: Normal Motor Strength: 3/5: Left Arm, Right Arm, Left Leg, Right Leg Gait: Deferred Imaging - Results Cat Scan: Image Reviewed Problem List - Problems (1) Multiple sclerosis exacerbation Code(s): G35 - MULTIPLE SCLEROSIS Assessment/Plan 1. MRI of the brain without and with contrast. 2. Physical therapy. 3. Fall precautions. 4. GI prophylaxis. 5. BGM every 12 hours. 6. Solu-Medrol 250 every 6 hours
[2020-01-28 12:04] LABS: PH,URINE 6.5 (5.0-8.0); URINE APPEARANCE CLEAR; URINE BILIRUBIN NEGATIVE (NEGATIVE); URINE COLOR YELLOW; URINE GLUCOSE (UA) NEGATIVE (NEGATIVE); URINE KETONE 1+ (NEGATIVE); URINE LEUK ESTERASE NEGATIVE (NEGATIVE); URINE NITRITE NEGATIVE (NEGATIVE); URINE PROTEIN NEGATIVE (NEGATIVE)
--- NOTE | 2020-01-28 14:36 | CON.HO ---
Consult Consult Specialty:: Hematology Reason for Consultation:: Leukopenia - History of Present Illness Chief Complaint: Generalized weakness and aphasia History of Present Illness: 49M with MS, asthma presents with worsening weakness in extremities and ex pressive aphasia. Symptoms started about 4 days prior to presentation. Last MS exacerbation was 4 years ago but with no symptoms of aphasia. Started on high dose steroids for presumed MS flare. MRI pending. Hematology consulted for leukopenia. CBC on arrival with WBC 4, down to 1.8 this am, Hb stable at 12.3, plts 210. - History Source History Provided By: Patient - Past Medical History MRI CT TECH: Yes: Multiple Sclerosis ...LMP: 01/20/20 ...: No - Alcohol/Substance Use Hx Alcohol Use: Yes - Smoking History Smoking history: Never smoked Have you smoked in the past 12 months: Yes Aproximately how many cigarettes per day: 3 If you are a former smoker, when did you quit?: 2011 Home Medications - Allergies Allergies/Adverse Reactions: Allergies Allergy/AdvReac Type Severity Reaction Status Date / Time No Known Drug Allergies Allergy Verified 01/27/20 17:19 - Home Medications Home Medications: Ambulatory Orders Albuterol Sulfate [Proventil Hfa] 2 inh PO PRN PRN 11/22/12 Budesonide/Formeterol Fumarate [SYMBICORT 160/4.5mcg] 2 inh IH DAILY 11/22/12 Interferon Beta-1A/Albumin [Rebif 22 Mcg/0.5 ml Syringe] 22 mcg SQ UTDICT 11/22/12 Lamotrigine [Lamictal] 25 mg PO HS 11/22/12 Trazodone HCl 300 mg PO HS 11/22/12 Bisacodyl [Correctol] 5 mg PO BID 04/20/14 Azithromycin [Zithromax 250mg Tablets -] 250 mg PO UTDICT #6 tab 05/31/15 Benzonatate [Tessalon Perle -] 200 mg PO BID PRN #10 cap 05/31/15 Family Medical History Family History: Unremarkable Review of Systems - Review of Systems Constitutional: reports: Lethargy, Weakness Eyes: reports: No Symptoms HENT: reports: No Symptoms Neck: reports: No Symptoms Cardiovascular: reports: No Symptoms Respiratory: reports: No Symptoms Gastrointestinal: reports: No Symptoms Genitourinary: reports: No Symptoms Musculoskeletal: reports: Muscle Weakness Integumentary: reports: No Symptoms Neurological: reports: Change in Speech, Unsteady Gait, Weakness Endocrine: reports: No Symptoms Hematology/Lymphatic: reports: No Symptoms Physical Exam Vital Signs: Vital Signs Temperature 98 F 01/28/20 08:56 Pulse Rate 70 01/28/20 06:06 Respiratory Rate 19 01/28/20 06:06 Blood Pressure 116/78 01/28/20 08:56 O2 Sat by Pulse Oximetry (%) 98 01/28/20 08:56 Constitutional: Yes: Well Nourished, No Distress Eyes: Yes: WNL, EOM Intact HENT: Yes: WNL, Atraumatic, Normocephalic Neck: Yes: Supple Cardiovascular: Yes: Regular Rate and Rhythm Respiratory: Yes: CTA Bilaterally Gastrointestinal: Yes: Normal Bowel Sounds, Soft Musculoskeletal: Yes: Muscle Weakness Neurological: Yes: Other (mild aphasia but has improved as per patient) Labs: CBC, BMP 01/28/20 05:21 01/28/20 05:21 Assessment/Plan 49M with MS, asthma presents with worsening weakness in extremities and expres sive aphasia; hematology consulted for lymphocytopenia Leukopenia CBC normal on admission -would repeat cbc again today. If continues to be lymphopenic would continue to trend with differential daily. Could be due to underlying viral infection /marrow stress from MS flare
--- NOTE | 2020-01-28 16:28 | PN ---
Physical Exam: SUBJECTIVE: Patient seen and examined OBJECTIVE: Vital Signs Period Temp Pulse Resp BP Sys/[place] Pulse Ox Last 24 Hr 97.4 F-98.9 F 70-103 16-20 116-131/72-91 97-99 GENERAL: The patient is awake, alert, and fully oriented, in no acute distress. HEAD: Normal with no signs of trauma. EYES: PERRL, extraocular movements intact, sclera anicteric, conjunctiva clear. No ptosis. ENT: Ears normal, nares patent, oropharynx clear without exudates, moist mucous membranes. NECK: Trachea midline, full range of motion, supple. LUNGS: Breath sounds equal, clear to auscultation bilaterally, no wheezes, no crackles, no accessory muscle use. HEART: Regular rate and rhythm, S1, S2 without murmur, rub or gallop. ABDOMEN: Soft, nontender, nondistended, normoactive bowel sounds, no guarding, no rebound, no hepatosplenomegaly, no masses. EXTREMITIES: 2+ pulses, warm, well-perfused, no edema. NEUROLOGICAL: Cranial nerves II through XII grossly intact. Normal speech, gait not observed. PSYCH: Normal mood, normal affect. SKIN: Warm, dry, normal turgor, no rashes or lesions noted Laboratory Results - last 24 hr 01/27/20 01/27/20 01/27/20 18:40 18:40 19:15 WBC 4.0 RBC 3.99 Hgb 12.1 Hct 36.3 MCV 91.1 MCH 30.3 MCHC 33.3 RDW 13.5 Plt Count 211 D MPV 8.1 Absolute Neuts (auto) 2.2 Total Counted Neutrophils % 55.3 Neutrophils % (Manual) Lymphocytes % 32.2 Lymphocytes % (Manual) Monocytes % 8.0 Monocytes % (Manual) Eosinophils % 3.4 Eosinophils % (Manual) Basophils % 1.1 Nucleated RBC % 0 Sodium 139 Potassium 3.6 Chloride 104 Carbon Dioxide 31 Anion Gap 4 L BUN 17.1 Creatinine 1.0 Est GFR (CKD-EPI)AfAm 77.69 Est GFR (CKD-EPI)NonAf 67.04 Random Glucose 101 Calcium 8.3 L Phosphorus Magnesium Total Bilirubin 0.2 AST 9 L ALT 21 Alkaline Phosphatase 60 Total Protein 6.9 Albumin 3.4 Urine Color Urine Appearance Urine pH Ur Specific [place] Urine Protein Urine Glucose (UA) Urine Ketones Urine Blood Urine Nitrite Urine Bilirubin Urine Urobilinogen Ur Leukocyte Esterase Urine HCG, Qual COVID-19 (JUSTEN) Not detected 01/28/20 01/28/20 01/28/20 05:21 05:21 10:54 WBC 1.8 L* RBC 4.14 Hgb 12.3 Hct 37.4 MCV 90.2 MCH 29.6 MCHC 32.9 RDW 13.5 Plt Count 210 MPV 8.8 Absolute Neuts (auto) 1.4 L Total Counted 100 Neutrophils % 78.2 D Neutrophils % (Manual) 75.0 Lymphocytes % 20.2 D Lymphocytes % (Manual) 22.0 Monocytes % 1.5 L D Monocytes % (Manual) 2 L Eosinophils % 0.0 D Eosinophils % (Manual) 1.0 Basophils % 0.1 Nucleated RBC % 1 H Sodium 136 Potassium 4.5 Chloride 103 Carbon Dioxide 26 Anion Gap 7 L BUN 14.9 Creatinine 0.6 Est GFR (CKD-EPI)AfAm 125.80 Est GFR (CKD-EPI)NonAf 108.54 Random Glucose 127 H Calcium 8.4 L Phosphorus 4.5 Magnesium 2.1 Total Bilirubin 0.5 AST 12 L ALT 22 Alkaline Phosphatase 56 Total Protein 7.0 Albumin 3.3 L Urine Color Yellow Urine Appearance Clear Urine pH 6.5 D Ur Specific [place] 1.023 Urine Protein Negative Urine Glucose (UA) Negative Urine Ketones 1+ H Urine Blood Negative Urine Nitrite Negative Urine Bilirubin Negative Urine Urobilinogen 1.0 Ur Leukocyte Esterase Negative Urine HCG, Qual COVID-19 (JUSTEN) 01/28/20 14:00 WBC RBC Hgb Hct MCV MCH MCHC RDW Plt Count MPV Absolute Neuts (auto) Total Counted Neutrophils % Neutrophils % (Manual) Lymphocytes % Lymphocytes % (Manual) Monocytes % Monocytes % (Manual) Eosinophils % Eosinophils % (Manual) Basophils % Nucleated RBC % Sodium Potassium Chloride Carbon Dioxide Anion Gap BUN Creatinine Est GFR (CKD-EPI)AfAm Est GFR (CKD-EPI)NonAf Random Glucose Calcium Phosphorus Magnesium Total Bilirubin AST ALT Alkaline Phosphatase Total Protein Albumin Urine Color Urine Appearance Urine pH Ur Specific [place] Urine Protein Urine Glucose (UA) Urine Ketones Urine Blood Urine Nitrite Urine Bilirubin Urine Urobilinogen Ur Leukocyte Esterase Urine HCG, Qual Negative COVID-19 (JUSTEN) Active Medications Generic Name Dose Route Start Last Admin Trade Name Freq PRN Reason Stop Dose Admin Albuterol Sulfate 2 puff 01/27/20 23:26 Ventolin Hfa Inhaler - IH Q4H PRN SHORT OF BREATH/WHEEZING Bisacodyl 5 mg 01/28/20 10:00 01/28/20 10:54 Dulcolax - PO 5 mg DAILY STEVE Administration Bupropion HCl 150 mg 01/28/20 10:00 01/28/20 10:56 Wellbutrin Xl - PO 150 mg DAILY STEVE Administration Enoxaparin Sodium 40 mg 01/28/20 10:00 01/28/20 10:55 Lovenox - SQ 40 mg DAILY STEVE Administration Lamotrigine 25 mg 01/27/20 23:19 01/28/20 00:44 Lamictal - PO 25 mg HS STEVE Administration Methylprednisolone Sodium Succinate 250 mg 01/28/20 10:00 01/28/20 10:56 Solu-Medrol - IVPB 250 mg BID STEVE Administration Montelukast Sodium 10 mg 01/28/20 22:00 Singulair - PO HS STEVE Polyethylene Glycol 17 gm 01/28/20 10:00 01/28/20 10:55 Miralax (For Daily Use) - PO 17 gm DAILY STEVE Administration Trazodone HCl 300 mg 01/28/20 22:00 Desyrel - PO HS STEVE ASSESSMENT/PLAN: Patient is a 49 year old woman with a PMH of Gastritis, Constipation, Depression, Multiple sclerosis and Asthma who presents to the ER sent by Neurologist Dr. Andujar for two days of progressively worsening bilateral upper and lower extremity weakness with episodes of vertigo and word finding difficulty # MS flare up symptoms improved since admission steroids increased per neurologist Ppi, trend POC glucose c/w lamotrigine MRI brain w/o # Leukopenia BM suppression? viral vs stress neutropenic precautions repeat CBC (was normal yesterday) Hematology consult Asthma depression constipation DVT prophylaxis Visit type - Emergency Visit Emergency Visit: Yes ED Registration Date: 01/27/20 Care time: The patient presented to the Emergency Department on the above date and was hospitalized for further evaluation of their emergent condition. - New Patient This patient is new to me today: Yes Date on this admission: 01/28/20 - Critical Care Critical Care patient: No - Discharge Referral Referred to [facility] Med P.C.: No
[2020-01-28 16:54] LABS: BASO % 0.1 % (0-2.0); HEMATOCRIT 37.8 % (32.4-45.2); HEMOGLOBIN 12.8 GM/dL (10.7-15.3); LYMPH % 7.9 % (8-40); MCH 30.5 pg (25.7-33.7); MCHC 33.7 g/dl (32.0-36.0); MEAN CELL VOLUME 90.5 fl (80-96); MEAN PLT VOLUME 8.8 fl (7.5-11.1); MONO % 0.9 % (3.8-10.2); NEUT % 91.1 % (42.8-82.8); PLATELET COUNT 221 K/MM3 (134-434); RBC 4.18 M/mm3 (3.60-5.2); RDW 13.5 % (11.6-15.6); WHITE BLOOD COUNT 4.8 K/mm3 (4.0-10.0)
[2020-01-28 17:49] LABS: ANISOCYTOSIS 0; MACROCYTOSIS 0; PLATELET ESTIMATE NORMAL
[2020-01-28] MEDS: methylPREDNISolone NA SUCC 125 MG/2 ML VIAL IVPB SCH (18:08)
[2020-01-28 18:56] VITALS: BMI 22.7
[2020-01-28] MEDS ORDERED: ACETAMINOPHEN 325 MG TABLET (FP) PO PRN (21:22)
[2020-01-28] MEDS ORDERED: MONTELUKAST NA 5 MG TAB.CHEW PO SCH (22:00)
[2020-01-28] MEDS ORDERED: MONTELUKAST NA 10 MG TABLET PO SCH (22:00)
[2020-01-28] MEDS ORDERED: traZODone HCL 100 MG TABLET (FP) PO SCH (22:00)
[2020-01-29] MEDS: methylPREDNISolone NA SUCC 125 MG/2 ML VIAL IVPB SCH ×3 (01:00→12:12)
[2020-01-29 09:08] LABS: HEMATOCRIT 36.4 % (32.4-45.2); HEMOGLOBIN 12.3 GM/dL (10.7-15.3); LYMPH % 7.9 % (8-40); MCH 30.6 pg (25.7-33.7); MCHC 33.8 g/dl (32.0-36.0); MEAN CELL VOLUME 90.6 fl (80-96); MONO % 1.5 % (3.8-10.2); NEUT % 90.6 % (42.8-82.8); PLATELET COUNT 187 K/MM3 (134-434); RBC 4.02 M/mm3 (3.60-5.2); RDW 13.5 % (11.6-15.6); WHITE BLOOD COUNT 5.8 K/mm3 (4.0-10.0)
[2020-01-29 09:42] LABS: ALBUMIN 3.3 g/dl (3.4-5.0); BLOOD UREA NITROGEN 14.7 mg/dL (7-18); CALCIUM 8.3 mg/dL (8.5-10.1); CREATININE 0.6 mg/dL (0.55-1.3); POTASSIUM 4.3 mmol/L (3.5-5.1); TOT PROT 6.6 g/dl (6.4-8.2)
[2020-01-29 09:43] LABS: BILIRUBIN,TOTAL 0.5 mg/dL (0.2-1)
[2020-01-29] MEDS: ENOXAPARIN NA (PORCINE) 40 MG/0.4 ML DISP.SYRIN SQ SCH (10:09)
[2020-01-29] MEDS: POLYETHYLENE GLYCOL 3350 119 GM BTL PO SCH (10:09)
[2020-01-29] MEDS ORDERED: BISACODYL 5 MG TABLET.DR (FP) PO PRN (10:17)
[2020-01-29] MEDS ORDERED: BISACODYL 5 MG TABLET.DR (FP) PO SCH (10:24)
[2020-01-29] MEDS ORDERED: BISACODYL 10 MG SUPP.RECT PR ONE (10:27)
[2020-01-29] MEDS ORDERED: PANTOPRAZOLE 40 MG TABLET PO SCH (10:30)
[2020-01-29] MEDS ORDERED: LINZESS PO SCH (10:30)
[2020-01-29] MEDS ORDERED: BISACODYL 5 MG TABLET.DR (FP) PO ONE (11:33)
[2020-01-29] MEDS: BISACODYL 5 MG TABLET.DR (FP) PO SCH (12:13)
--- NOTE | 2020-01-29 12:51 | PN ---
Progress Note, Physician History of Present Illness: events noted chart reviewed seen last night in the floor doing slightly better very anxious patient still under the care of psychiatry patient is on Lamictal patient is off the Seroquel patient with difficulty sleeping I reviewed MRI of the brain which showed no acute lesion - Current Medication List Current Medications: Active Medications Acetaminophen (Tylenol -) 650 mg PO Q6H PRN PRN Reason: PAIN LEVEL 4 - 6 Albuterol Sulfate (Ventolin Hfa Inhaler -) 2 puff IH Q4H PRN PRN Reason: SHORT OF BREATH/WHEEZING Atorvastatin Calcium (Lipitor -) 40 mg PO [facility] Bupropion HCl (Wellbutrin Xl -) 150 mg PO DAILY [facility] Last Admin: 01/29/20 10:09 Dose: 150 mg Documented by: Enoxaparin Sodium (Lovenox -) 40 mg SQ DAILY [facility] Last Admin: 01/29/20 10:09 Dose: 40 mg Documented by: Lamotrigine (Lamictal -) 25 mg PO [facility] Last Admin: 01/28/20 22:47 Dose: 25 mg Documented by: Methylprednisolone Sodium Succinate (Solu-Medrol -) 250 mg IVPB Q6H [facility] Last Admin: 01/29/20 12:12 Dose: 250 mg Documented by: Montelukast Sodium (Singulair -) 10 mg PO [facility] Last Admin: 01/28/20 22:47 Dose: 10 mg Documented by: Non-Formulary Medication (Patient's Own Med) 1 each PO DAILY [facility] Pantoprazole Sodium (Protonix -) 40 mg PO DAILY [facility] Last Admin: 01/29/20 12:12 Dose: 40 mg Documented by: Polyethylene Glycol (Miralax (For Daily Use) -) 17 gm PO DAILY [facility] Last Admin: 01/29/20 10:09 Dose: 17 gm Documented by: Trazodone HCl (Desyrel -) 300 mg PO [facility] Last Admin: 01/29/20 00:59 Dose: 300 mg Documented by: - Objective Vital Signs: Vital Signs Temperature 98.6 F 01/29/20 10:34 Pulse Rate 85 01/29/20 10:34 Respiratory Rate 18 01/29/20 10:34 Blood Pressure 137/77 01/29/20 10:34 O2 Sat by Pulse Oximetry (%) 99 01/29/20 10:34 Constitutional: Yes: Well Nourished Eyes: Yes: WNL HENT: Yes: WNL Neurological: Yes: Alert, Oriented, Babinski negative, Cran Nerves II-XII Intact ...Motor Strength: WNL Labs: CBC, BMP 01/29/20 08:00 01/29/20 08:00 Problem List - Problems (1) Multiple sclerosis exacerbation Assessment/Plan: 1. Taper the steroids change the Solu-Medrol to prednisone 60 mg for 4 days 40 mg for 4 days 20 mg for one week. 2. Continue immunomodulators same discharge planning Code(s): G35 - MULTIPLE SCLEROSIS
[2020-01-29 15:38] VITALS: BP 143/86; PULSE 67; TEMP 98.7
--- NOTE | 2020-01-29 16:08 | DS ---
Physical Exam: SUBJECTIVE: Patient seen and examined. She reports feeling better, and is ambulating around without difficulty. Wants to go home and follow up outpatient with Dr. Andujar. OBJECTIVE: Patient is a 49 year old woman with a PMH of Gastritis, Constipation, Depression, Multiple sclerosis and Asthma who presents to the ER sent by Neurologist Dr. Andujar for two days of progressively worsening bilateral upper and lower extremity weakness with episodes of vertigo and word finding difficulty. Brain MRI 01/29/2020: no new lesions seen Vital Signs Period Temp Pulse Resp BP Sys/Winston Pulse Ox Last 24 Hr 98.6 F-98.8 F 67-91 18-20 122-143/74-86 95-99 PHYSICAL EXAM GENERAL: The patient is awake, alert, and fully oriented, in no acute distress. HEAD: Normal with no signs of trauma. EYES: PERRL, extraocular movements intact, sclera anicteric, conjunctiva clear. ENT: Ears normal, nares patent, oropharynx clear without exudates, moist mucous membranes. NECK: Trachea midline, full range of motion, supple. LUNGS: Breath sounds equal, clear to auscultation bilaterally, no wheezes, no crackles, no accessory muscle use. HEART: Regular rate and rhythm, S1, S2 without murmur, rub or gallop. ABDOMEN: Soft, nontender, nondistended, normoactive bowel sounds, no guarding, no rebound, no hepatosplenomegaly, no masses. EXTREMITIES: 2+ pulses, warm, well-perfused, no edema. NEUROLOGICAL: Cranial nerves II through XII grossly intact. Normal speech, gait not observed. PSYCH: Normal mood, normal affect. SKIN: Warm, dry, normal turgor, no rashes or lesions noted. LABS Laboratory Results - last 24 hr 01/28/20 01/28/20 01/29/20 15:30 18:05 00:07 WBC 4.8 RBC 4.18 Hgb 12.8 Hct 37.8 MCV 90.5 MCH 30.5 MCHC 33.7 RDW 13.5 Plt Count 221 MPV 8.8 Absolute Neuts (auto) 4.4 Neutrophils % 91.1 H Neutrophils % (Manual) 93.0 H Band Neutrophils % 0.0 Lymphocytes % 7.9 L D Lymphocytes % (Manual) 7.0 L D Monocytes % 0.9 L Monocytes % (Manual) 0 L D Eosinophils % 0.0 Eosinophils % (Manual) 0.0 D Basophils % 0.1 Basophils % (Manual) 0.0 Myelocytes % (Man) 0 Promyelocytes % (Man) 0 Blast Cells % (Manual) 0 Nucleated RBC % 0 Metamyelocytes 0 Hypochromia 0 Platelet Estimate Normal Polychromasia 0 Poikilocytosis 0 Anisocytosis 0 Microcytosis 0 Macrocytosis 0 Sodium Potassium Chloride Carbon Dioxide Anion Gap BUN Creatinine Est GFR (CKD-EPI)AfAm Est GFR (CKD-EPI)NonAf POC Glucometer 176 129 Random Glucose Calcium Total Bilirubin AST ALT Alkaline Phosphatase Total Protein Albumin 01/29/20 01/29/20 01/29/20 06:57 08:00 08:00 WBC 5.8 RBC 4.02 Hgb 12.3 Hct 36.4 MCV 90.6 MCH 30.6 MCHC 33.8 RDW 13.5 Plt Count 187 MPV 9.0 Absolute Neuts (auto) 5.2 Neutrophils % 90.6 H Neutrophils % (Manual) Band Neutrophils % Lymphocytes % 7.9 L Lymphocytes % (Manual) Monocytes % 1.5 L Monocytes % (Manual) Eosinophils % 0.0 Eosinophils % (Manual) Basophils % 0.0 Basophils % (Manual) Myelocytes % (Man) Promyelocytes % (Man) Blast Cells % (Manual) Nucleated RBC % 0 Metamyelocytes Hypochromia Platelet Estimate Polychromasia Poikilocytosis Anisocytosis Microcytosis Macrocytosis Sodium 140 Potassium 4.3 Chloride 106 Carbon Dioxide 26 Anion Gap 7 L BUN 14.7 Creatinine 0.6 Est GFR (CKD-EPI)AfAm 125.80 Est GFR (CKD-EPI)NonAf 108.54 POC Glucometer 131 Random Glucose 122 H Calcium 8.3 L Total Bilirubin 0.5 AST 10 L ALT 19 Alkaline Phosphatase 55 Total Protein 6.6 Albumin 3.3 L HOSPITAL COURSE: Date of Admission:01/27/20 Date of Discharge: 01/29/20 Minutes to complete discharge: 45 Discharge Summary Problems reviewed: Yes Reason For Visit: MULTIPLE SCLEROSIS Current Active Problems Multiple sclerosis exacerbation (Acute) Condition: Stable - Instructions Diet, Activity, Other Instructions: Mrs Blanc: You were admitted for exacerbation of our MS. We completed a brain MRI which showed no lesions. We will be discharging you home today with the following medications: Multiple sclerosis exacerbation START 60mg of Prednisone for 4 days ONCE per day: on 01/29, 01/30, 01/31, 02/01 at 8am THEN START 20mg once per day for 1 week total From 02/02-02/10/2020 also at 8am THE PREDNISONE IS ONCE PER DAY. TAKE WITH PROTONIX Please follow up with Dr. Andujar Referrals: Doug Andujar MD [Staff Physician] - Disposition: HOME - Home Medications Comprehensive Discharge Medication List: Ambulatory Orders Albuterol Sulfate [Proventil HFA Inhaler -] 2 inh PO PRN PRN 11/22/12 Budesonide/Formeterol Fumarate [SYMBICORT 160/4.5mcg -] 2 inh IH DAILY 11/22/12 Interferon Beta-1A/Albumin [Rebif 22 Mcg/0.5 ml Syringe] 22 mcg SQ UTDICT 11/22/12 Lamotrigine [Lamictal] 25 mg PO HS 11/22/12 Trazodone HCl 300 mg PO HS 11/22/12 Bisacodyl [Correctol] 30 mg PO DAILY 04/20/14 Linaclotide [Linzess] 290 mcg PO DAILY 01/29/20 Pantoprazole Sodium [Protonix] 40 mg PO DAILY #30 tablet. 01/29/20 Simvastatin 40 mg PO DAILY 01/29/20 predniSONE [Deltasone -] 20 mg PO DAILY #30 tablet 01/29/20 Problem List - Problems (1) Multiple sclerosis exacerbation Assessment/Plan: On solumedrol TID per neurologist No new lesions seen on brain MRI per neurology can d/c home with steriod taper Code(s): G35 - MULTIPLE SCLEROSIS This patient is new to me today: Yes Date on this admission: 01/29/20 Emergency Visit: Yes ED Registration Date: 01/27/20 Care time: The patient presented to the Emergency Department on the above date and was hospitalized for further evaluation of their emergent condition. Critical Care patient: No - Discharge Referral Referred to [facility] No
[2020-01-29] MEDS ORDERED: PT OWN MED DRAWER 7, Y5N ONE (16:42)
[2020-01-29] MEDS ORDERED: ATORVASTATIN CA 40 MG TABLET (FP) PO SCH (22:00)
== END 2020-01-29 17:04 | disposition home or self-care (01) | DRG 59 ==
LOC: JER 17:00 → JERBED 18:19 → J5S 01-28 09:24
PROVIDERS: ADMIT Internal Medicine; ATTEND Nurse Practitioner Family
DX: G35 Multiple sclerosis (principal); R47.01 Aphasia; R42 Dizziness and giddiness; J45.909 Unspecified asthma, uncomplicated; D72.810 Lymphocytopenia; K59.00 Constipation, unspecified; F32.9 Major depressive disorder, single episode, unspecified; D72.819 Decreased white blood cell count, unspecified; G47.00 Insomnia, unspecified; R53.1 Weakness
CPT/HCPCS: 36415; 70553-TC; 71045-TC-FY; 80053; 81003; 82962; 83735; 84100; 84703; 85025; 93005; 93010; 97116-GP; 97162-GP; 99285-25; A9579; J0131; U0003

== ENCOUNTER 2021-02-23 22:43 | Emergency (ER) | payer OTHER ==
[2021-02-23 22:52] VITALS: BP 129/82; PULSE 90; TEMP 98.4; BMI 24.3
[2021-02-23] MEDS ORDERED: IBUPROFEN 600 MG TABLET (FP) PO ONE ×2 (23:52→23:59)
== END 2021-02-23 23:35 | disposition home or self-care (01) ==
LOC: JER 22:43
DX: R50.9 Fever, unspecified (principal); R05.1 Acute cough; J02.9 Acute pharyngitis, unspecified; Z11.52 Encounter for screening for COVID-19
CPT/HCPCS: 87804; 99283-25; C9803; U0003; U0005